=== PATIENT | male | born 1990 ===

== ENCOUNTER 2019-12-10 17:58 | Outpatient (REF) | payer SELFPAY ==
[2019-12-10 22:09] LABS: HGB 13.9 g/dL (13.5-17.5); Mean Corp. HGB Concentration 33.9 g/dL (32.0-36.0); Mean Corpuscular Hemoglobin 30.2 pg (27.0-33.0); Mean Corpuscular Volume 89.1 fL (80-95); Mean Platelet Volume 10.9 fL (8.0-11.0); Platelet Count 247 x1000/uL (130-400); RBC Distribution Width 12.2 % (11.8-14.1); White Blood Cell Count 5.26 k/cumm (4.4-10.8)
[2019-12-10 22:17] LABS: BUN 12 mg/dL (7-18); CREATININE 0.89 mg/dL (0.70-1.30); Calcium 8.7 mg/dL (8.5-10.1); Chloride 104 mmol/L (98-107); Glucose 85 mg/dL (74-106); Potassium 3.9 mmol/L (3.5-5.1); Sodium 142 mmol/L (136-145)
[2019-12-12 10:47] LABS: HIV-1/2 Ag & Ab Screen Negative (Negative)
== END 2019-12-10 18:18 ==
LOC: NCHCN 17:58
PROVIDERS: Visit Provider Nurse Practitioner Community Health
DX: B35.4 Tinea corporis (principal); Z87.898 Personal history of other specified conditions; Z11.4 Encounter for screening for human immunodeficiency virus [HIV]
CPT/HCPCS: 80048; 85027; 87389